=== PATIENT | female | born 1965 | race Caucasian/White ===

== ENCOUNTER 2017-11-18 05:41 | Day surgery (SDC) | payer BC ==
[2017-11-18] MEDS ORDERED: EPINEPHrine 1 MG INJ (06:28)
[2017-11-18] MEDS ORDERED: DEXAMETHASONE 4 MG/ML 1 ML INJ ×2 (06:28)
[2017-11-18] MEDS ORDERED: CARBACHOL 0.01% 1.5 ML OPH INJ (06:28)
[2017-11-18] MEDS ORDERED: LIDOCAINE 4% (MPF) 5 ML INJ (06:28)
[2017-11-18] MEDS ORDERED: CEFAZOLIN 1 GM INJ (06:28)
[2017-11-18] MEDS ORDERED: ATROPINE 1 MG/10 ML SYRINGE IV (07:00)
[2017-11-18] MEDS ORDERED: MIDAZOLAM 1 MG/ML 2 ML INJ IV (07:00)
[2017-11-18] MEDS ORDERED: PROPOFOL 200 MG INJ (07:00)
[2017-11-18] MEDS ORDERED: morphine (1 MG/ML) 10ML SYRINGE IV ×3 (07:00)
[2017-11-18] MEDS ORDERED: MEPERIDINE 25 MG INJ IV (07:00)
[2017-11-18] MEDS ORDERED: OXYCODONE/ACETAMINOPHEN (5/325) TAB PO ×2 (07:00)
[2017-11-18] MEDS ORDERED: hydrALAzine 20 MG INJ IV (07:00)
[2017-11-18] MEDS ORDERED: FENTAnyl 50 MCG/ML VIAL IV ×2 (07:00)
[2017-11-18] MEDS ORDERED: DIPHENHYDRAMINE 50 MG INJ IV (07:00)
[2017-11-18] MEDS ORDERED: ONDANSETRON 4 MG INJ IV (07:00)
[2017-11-18] MEDS ORDERED: LIDOCAINE 2% (SDV) 5 ML INJ (07:00)
[2017-11-18] MEDS ORDERED: LABETALOL HCL 20MG INJ IV (07:00)
[2017-11-18] MEDS ORDERED: HYDROmorphONE (0.2 MG/ML) 10ML SYG IV ×3 (07:00)
[2017-11-18] MEDS ORDERED: EPHEDrine SULFATE 50 MG/5 ML SYG IV (07:00)
[2017-11-18] MEDS: SOD CHLORIDE 0.9% 1,000 ML IV (07:38)
[2017-11-18] MEDS: DICLOFENAC 0.1% 2.5 ML OPH LEFT EYE (07:42)
[2017-11-18] MEDS: TROPICAMIDE 1% 3 ML OPH LEFT EYE (07:43)
[2017-11-18] MEDS: MOXIFLOXACIN 0.5% 3 ML OPH LEFT EYE (07:44)
[2017-11-18] MEDS: CYCLOPENTOLATE/PHENYLEPH 2 ML OPH LEFT EYE (07:44)
[2017-11-18] MEDS: DEXAMETHASONE 4 MG/ML 1 ML INJ INJ (08:20)
[2017-11-18] MEDS: CARBACHOL 0.01% 1.5 ML OPH INJ IO (08:20)
[2017-11-18] MEDS: CEFAZOLIN 1 GM INJ INJ (08:20)
== END 2017-11-18 10:21 | disposition home or self-care (01) ==
LOC: SDS 05:41
DX: H25.042 Posterior subcapsular polar age-related cataract, left eye (principal); E78.5 Hyperlipidemia, unspecified
CPT/HCPCS: 66984